=== PATIENT | male | born 1955 | race Caucasian/White ===

== ENCOUNTER 2019-08-21 17:18 | Emergency (ER) | payer BC ==
[~2019-08-21] VITALS: Ht 182.9 cm; Wt 81.7 kg
--- OUTSIDE RECORDS SUMMARY | ~2019-08-21 | XMS | Clinical Summary ---
Demographics + + + | Address | [address] | | | [place] [address] | + + + | Home Phone | | + + + | Preferred Language | Unknown | + + + | Marital Status | | + + + | Evangelical Affiliation | Unknown | + + + | Race | Unknown | + + + | Ethnic Group | Unknown | + + + Author + + + | Author | [facility] [employer] (Historical as of | | | 07-06-19) | + + + | Organization | [facility] [employer] (Historical as of | | | 07-06-19) | + + + | Address | Unknown | + + + | Phone | Unavailable | + + + Care Team Providers + +------+ + | Care Wind Farm Electrical Systems Designer Name | Role | Phone | + +------+ + | Toan Mederos MD | PP | | + +------+ + Allergies Not on File Current Medications Not on file Active Problems Not on file Social History + +-------+ +--------+------+ | Tobacco Use | Types | Packs/Day | Years | Date | | | | | Used | | + +-------+ +--------+------+ | Never Assessed | | | | | + +-------+ +--------+------+ + + + | Sex Assigned at | Date Recorded | | | | + + + | Not on file | | + + + Plan of Treatment +--------+---------+ + + + | Date | Type | Specialty | Care Team | Description | +--------+---------+ + + + | 10/29/ | Office | | Hernan Willingham, | | | 2018 | Visit | | DO [address] | | | | | | [address] [place], | | | | | | [place] [address] | | | | | | [phone] | | | | | | | | +--------+---------+ + + + + + + + + | Health Maintenance | Due Date | Last Done | Comments | + + + + + | Vaccine: | | | | | Dtap/Tdap/Td (1 - | 6 | | | | Tdap) | | | | + + + + + | Colon Cancer | | | | | Screening | 7 | | | | (Colonoscopy) | | | | + + + + + | Vaccine: Zoster (1 | | | | | of 2) | 7 | | | + + + + + | Vaccine: Influenza | | | | | (#1) | 9 | | | + + + + + Results Not on filefrom Last 3 Months Insurance +---------+--------+ +------+-------+ + | Payer | Benefi | Subscriber | Type | Phone | Address | | | t Plan | ID | | | | | | / | | | | | | | Group | | | | | +---------+--------+ +------+-------+ + | PREMERA | UNIFOR | [id number] | | | [address] [address] | | | M | 1 | | | [place] | | | [facility] | | | | [address] | | | E | | | | | +---------+--------+ +------+-------+ + + +--------+ +--------+ + + | Guarantor Name | Accoun | Relation to | Date | Phone | Billing Address | | | t Type | Patient | of | | | | | | | | | | + +--------+ +--------+ + + | SILVER,JESUS | Person | Self | [birth year] | Home: | [address] | | | al/Fam | | 1954 | [phone] | [place] [address] | | | [place] | | | [address] | | + +--------+ +--------+ + +"
--- OUTSIDE RECORDS SUMMARY | ~2019-08-21 | XMS | Encounter Summary ---
Demographics + + + | Address | [address] | | | [place] [address] | + + + | Home Phone | | + + + | Preferred Language | Unknown | + + + | Marital Status | Single | + + + | Taoism Affiliation | Unknown | + + + | Race | Unknown | + + + | Ethnic Group | Other Race | + + + Author + + + | Author | [facility] | + + + | Organization | [facility] | + + + | Address | Unknown | + + + | Phone | Unavailable | + + + Care Team Providers + +------+ + | Care Rotary Engine Assembler Name | Role | Phone | + +------+ + PCP | Unavailable | + +------+ + Encounter Details +--------+ + + + + | Date | Type | Department | Care Team | Description | +--------+ + + + + | 04/07/ | Results | [facility] | Erasmo Church, | | | 2009 | Only | Department | MD [place] | | | | | | CLINIC DERMATOLOGY | | | | | | [address] | | | | | | [place], [place] | | | | | | [address] | | | | | | | | +--------+ + + + + Social History + +-------+ +--------+------+ | Tobacco [...] on file | | + + + + + + + | Job Start Date | Occupation | Industry | + + + + | Not on file | Not on file | Not on file | + + + + + + + + | Travel History | Travel Start | Travel End | + + + + + + | No recent travel history available. | + + documented as of this encounter Plan of Treatment Not on filedocumented as of this encounter Procedures + +--------+ + + + | Procedure Name | Priori | Date/Time | Associated Diagnosis | Comments | | | ty | | | | + +--------+ + + + | DERMATOPATHOLOGY(WET | Routin | 04/07/2010 | | Results for this | | [facility]) | e | | | procedure are in the | | | | | | results section. | + +--------+ + + + documented in this encounter Results DERMATOPATHOLOGY(WET [facility]) (04/07/2010) + + + + + + | Component | Value | Ref Range | Performed | Pathologist | | | | | At | Signature | + + + + + + | DERMATOPATH | SOURCE OF SPECIMEN:A | | [facility] | | | OLOGY(WET | FIRST TISSUE LEVEL | | DERMATOPATH | | | [place]) | [place] [address] | | OLOGY | | | | CLINICAL | | | | | | DESCRIPTION:Punch, Rt. | | | | | | upper arm; 7mo. hx | | | | | | pruritic papules; eczema | | | | | | vs DH, | | | | | | undetectedscabies. | | | | | | GROSS DESCRIPTION:The | | | | | | specimen is received in | | | | | | formalin, labeled Rt. | | | | | | upper arm, with | | | | | | thepatient's name and | | | | | | consists of a pale patrick | | | | | | punch biopsy measuring | | | | | | 0.45 x0.5cm. the | | | | | | specimen is bisected and | | | | | | entirely submitted in | | | | | | one cassette. | | | | | | MICROSCOPIC | | | | | | DESCRIPTION:There is | | | | | | neutrophilic crust | | | | | | overlying focal | | | | | | ulceration of the | | | | | | epidermis. | | | | | | DIAGNOSIS:CRUST AND | | | | | | ULCERATION. | | | | | | NOTE: The findings | | | | | | are secondary, typical | | | | | | of external trauma as | | | | | | seen inEXCORIATION. | | | | | | There is no definite | | | | | | evidence of a primary | | | | | | process in thesesections | | | | | | where a sampling | | | | | | situation may be | | | | | | present. If the | | | | | | processcontinues or | | | | | | worsens, additional | | | | | | biopsy may be | | | | | | helpful. | | | | | | RT:mm5/24/10 | | | | | | Case review by:Brett | | | | | | Berlin, | | | | | | M.D./Dermatopathology | | | | | | Carmine Ash | | | | | | Jr., | | | | | | M.D.,/Dermatopathologist | | | | | | My electronic | | | | | | signature indicates that | | | | | | I have personally | | | | | | reviewed alldiagnostic | | | | | | slides, the gross and/or | | | | | | microscopic portion of | | | | | | thisreport and | | | | | | formulated the final | | | | | | diagnosis. | | | | | | Rendering | | | | | | Diagnostician: Frank | | | | | | yelitza sAh Jr., | | | | | | Cheri | | | | | | jose maria Signed 04/12/2010 | | | | + + + + + + + + | Specimen | + + | | + + + + + + + | Performing | Address | City/State/Zipcode | Phone Number | | Organization | | | | + + + + + | [facility] | [address], [address] | [place] [address] | | | DERMATOPATHOLOGY | [address] | | | + + + + + documented in this encounter Visit Diagnoses Not on filedocumented in this encounter"
--- OUTSIDE RECORDS SUMMARY | ~2019-08-21 | XMS ---
Demographics + + + | Address | [address] | | | [place] [address] | + + + | Preferred Language | Unknown | + + + | Marital Status | Unknown | + + + | Oriental Orthodox Affiliation | Unknown | + + + | Race | Unknown | + + + | Ethnic Group | Unknown | + + + Author + + + | Author | [facility] | + + + | Organization | [facility] | + + + | Address | [address] | | | [place] [address] | + + + | Phone | | + + + Care Team Providers + + + + | Care Shoe Laster Name | Role | Phone | + + + + Unavailable | Unavailable | + + + + PROBLEMS Unknown Problems ALLERGIES Unknown Allergies SOCIAL HISTORY No smoking Hx information available PLAN OF CARE VITAL SIGNS MEDICATIONS Unknown Medications RESULTS No Results PROCEDURES No Known procedures IMMUNIZATIONS No Known Immunizations"
--- OUTSIDE RECORDS SUMMARY | ~2019-08-21 | XMS | Clinical Summary ---
Demographics + + + | Address | [address] | | | [place] [address] | + + + | Home Phone | | + + + | Preferred Language | Unknown | + + + | Marital Status | Single | + + + | Pentecostalism Affiliation | Unknown | + + + | Race | Unknown | + + + | Ethnic Group | Other Race | + + + Author + + + | Author | [facility] | + + + | Organization | [facility] | + + + | Address | Unknown | + + + | Phone | Unavailable | + + + Care Team Providers + +------+ + | Care Project Management Analyst Name | Role | Phone | + +------+ + PCP | Unavailable | + +------+ + Source Comments SREEDHAR is fully live on both [facility] and [facility]Patient.[facility] Allergies Not on File Medications Not on file Active Problems Not [...] recent travel history available. | + + Last Filed Vital Signs Not on file Plan of Treatment + + + + + | Health Maintenance | Due Date | Last Done | Comments | + + + + + | Influenza (Flu) | | | | | vaccination (#1) | 9 | | | + + + + + | Pneumococcal | Aged Out | | No longer eligible | | vaccination | | | based on patient's | | | | | age to complete this | | | | | topic | + + + + + Results Not on filefrom Last 3 Months Insurance + +--------+ +--------+ + +------+ | Payer | Benefi | Subscriber | Effect | Phone | Address | Type | | | t Plan | ID | margaret | | | | | | / | | Dates | | | | | | Group | | | | | | + +--------+ +--------+ + +------+ | BLUE CROSS BLUE | REGENC | [phone] | 02/22/20 | [phone] | [address] | PPO | | SHIELD | E BCBS | x | 18-Pre | 8 | [id number] | | | | | | sent | | [place], | | | | | | | | [place] | | | | | | | | [address] | | + +--------+ +--------+ + +------+ + +--------+ +--------+ + + | Guarantor Name | Accoun | Relation to | Date | Phone | Billing Address | | | t Type | Patient | of | | | | | | | | | | + +--------+ +--------+ + + | Jesus Linder | Person | Self | [birth year] | [address] | | | al/Fam | | 1954 | [phone] | [place] [address] | | | [place] | | | 2 (Home) | | + +--------+ +--------+ + +"
--- OUTSIDE RECORDS SUMMARY | ~2019-08-21 | XMS | Clinical Summary ---
Demographics + + + | Address | [address] | | | [place] [address] | + + + | Home Phone | | + + + | Preferred Language | Unknown | + + + | Marital Status | | + + + | Amish Affiliation | Unknown | + + + | Race | Unknown | + + + | Ethnic Group | Unknown | + + + Author + + + | Author | [facility] (Historical as of | | | 07-06-19) | + + + | Organization | [facility] (Historical as of | | | 07-06-19) | + + + | Address | Unknown | + + + | Phone | Unavailable | + + + Care Team Providers + +------+ + | Care Normalizer Name | Role | Phone | + [...] | | | | | [address] [place], | | | | | | [place] [address] | | | | | | [phone] | | | | | | | [...] +------+-------+ + | PREMERA | UNIFOR | [id number] | | | [address] [address] | | | M | [address] | | | [place] | | | [facility] | | | | [address] | | | E | | | [...] | 1954 | [phone] | [place] [address] | | | [place] | | | [address] | | + +--------+ +--------+ + +"
--- OUTSIDE RECORDS SUMMARY | ~2019-08-21 | XMS | Clinical Summary ---
Demographics + + + | Address | [address] | | | [place] [address] | + + + | Home Phone | | + + + | Preferred Language | Unknown | + + + | Marital Status | | + + + | Islam Affiliation | Unknown | + + + | Race | Unknown | + + + | Ethnic Group | Unknown | + + + Author + + + | Author | [facility] | | | and [place] | + + + | Organization | [facility] | | | and [place] | + + + | Address | Unknown | + + + | Phone | Unavailable | + + + Care Team Providers + +------+ + | Care Head Field Hockey Coach Name | Role | Phone | + +------+ + | Toan Mederos MD | PCP | | + +------+ + Allergies Not on File Medications Not on [...] Signs Not on file Plan of Treatment +--------+---------+ + + + | Date | Type | Specialty | Care Team | Description | +--------+---------+ + + + | 09/17/ | Office | Urology | Hernan Willingham, | | | 2018 | Visit | | DO [address] | | | | | | [place] [address] | | | | | | [phone] | | | | | | | | +--------+---------+ + + + + + + + + | Health Maintenance | Due Date | Last Done | Comments | + + + + + | Hepatitis C | | | | | Screening | 7 | | | + + + + + | Vaccine: | | | | | Dtap/Tdap/Td (1 - | 6 | | | | Tdap) | | | | + + + + + | Colorectal Cancer | | | | | Screening [...] Results Not on filefrom Last 3 Months Advance Directives Patient has advance care planning documents on file. For more information, please contact:[facility] [place] [address]"
--- OUTSIDE RECORDS SUMMARY | ~2019-08-21 | XMS | Encounter Summary ---
Demographics + + + | Address | [address] | | | [place] [address] | + + + | Home Phone | | + + + | Preferred Language | Unknown | + + + | Marital Status | Single | + + + | Shinto Affiliation | Unknown | + + + | Race | Unknown | + + + | Ethnic Group | Other Race | + + + Author + + + | Author | [facility] | + + + | Organization | [facility] | + + + | Address | Unknown | + + + | Phone | Unavailable | + + + Care Team Providers + +------+ + | Care Patient Care Nursing Assistant Name | Role | Phone | + [...] | | | | | [place], [place] | | | | | | [address] | | | | | | | [...] DERMATOPATH | | | MNT) | [place] [address] | | OLOGY | | | | [...] | | | | | | yelitza Ash Jr., | | | | | | [...] [facility] | [address], [address] | [place] [address] | | | DERMATOPATHOLOGY | [address] | | | + + + + + documented in this encounter Visit Diagnoses Not on filedocumented in this encounter"
--- OUTSIDE RECORDS SUMMARY | ~2019-08-21 | XMS | Clinical Summary ---
Demographics + + + | Address | [address] | | | [place] [address] | + + + | Home Phone | | + + + | Preferred Language | Unknown | + + + | Marital Status | | + + + | Congregational Affiliation | Unknown | + + + | Race | Unknown | + + + | Ethnic Group | Unknown | + + + Author + + + | Author | [facility] | | | and [place] | + + + | Organization | [facility] | | | and [place] | + + + | Address | Unknown | + + + | Phone | Unavailable | + + + Care Team Providers + +------+ + | Care Growth Media Mixer Mushroom Name | Role | Phone | + [...] [address] | | | | | | [place] [address] | | | | | | [phone] | | | | | | | [...] documents on file. For more information, please contact:[facility] [address]"
--- OUTSIDE RECORDS SUMMARY | ~2019-08-21 | XMS | Clinical Summary ---
Demographics + + + | Address | [address] | | | [place] [address] | + + + | Home Phone | | + + + | Preferred Language | Unknown | + + + | Marital Status | Single | + + + | Yazidi Affiliation | Unknown | + + + | Race | Unknown | + + + | Ethnic Group | Other Race | + + + Author + + + | Author | [facility] | + + + | Organization | [facility] | + + + | Address | Unknown | + + + | Phone | Unavailable | + + + Care Team Providers + +------+ + | Care Open Tenter Operator Name | Role | Phone | + +------+ + PCP | Unavailable | + +------+ + Source Comments SREEDHRA is fully live on both [facility] and [facility] InPatient.[facility] Allergies Not on File Medications Not on [...] | x | 18-Pre | 8 | [address] | | | | | | sent | | [place], | | | | | | | | [place] | | | | | | | | [address] | | + +--------+ +--------+ + +------+ [...] | | al/Fam | | 1954 | [phone] | [place] [address] | | | [place] | | | 2 (Home) | | + +--------+ +--------+ + +"
--- OUTSIDE RECORDS SUMMARY | ~2019-08-21 | XMS ---
Demographics + + + | Address | [address] | | | [place] [address] | + + + | Preferred Language | Unknown | + + + | Marital Status | Unknown | + + + | Mormon Affiliation | Unknown | + + + | Race | Unknown | + + + | Ethnic Group | Unknown | + + + Author + + + | Author | [facility] | + + + | Organization | [facility] | + + + | Address | [address] | | | [place] [address] | + + + | Phone | | + + + Care Team Providers + + + + | Care Vice President Corporate Communications Name | Role | Phone | + + + + Unavailable | Unavailable | + + + + PROBLEMS + + + + + + + + | Type | Condition | ICD9-CM | DHS57-PR | Onset | Condition | SNOMED | | | | Code | Code | Dates | Status | Code | + + + + + + + + | Assessment | Prostatiti | N41.9 | | Feb, | Active | [id number] | | | s | | | 2017 | | | + + + + + + + + | Assessment | UTI | N39.0 | | Feb, | Active | [id number] | | | (urinary | | | 2016 | | | | | tract | | | | | | | | infection) | | | | | | + + + + + + + + ALLERGIES + + + + +---------+ | Substance | Reaction | Event Type | Date | Status | + + + + +---------+ | N.K.JoanA. | Unknown | Non Drug | Feb, | Unknown | | | | Allergy | | | + + + + +---------+ SOCIAL HISTORY No smoking Hx information available PLAN OF CARE + +---------+ | Activity | Details | + +---------+ +---+ | | +---+ + + + | Pending Test | Urine Culture, Routine | + + + | Pending Test | Urinalysis, Dip (IH) | + + + | | prn,Reason: | + + + VITAL SIGNS + + + + | Height | 72 in | 2017-02-26 | + + + + | Weight | 184.8 lbs | 2017-02-26 | + + + + | BMI | 25.06 kg/m2 | 2017-02-26 | + + + + | Temperature | 97.8 degrees Fahrenheit | 2017-02-26 | + + + + | Heart Rate | 62 /min | 2017-02-26 | + + + + | Blood pressure systolic | 123 mm Hg | 2017-02-26 | + + + + | Blood pressure diastolic | 82 mm Hg | 2017-02-26 | + + + + MEDICATIONS + + +---------+ + + + +--------+ | Medicati | Instruct | Dosage | Frequenc | Start | End Date | Duration | Status | | on | ions | | y | Date | | | | + + +---------+ + + + +--------+ | Doxycycl | Oral bid | 1 | 12h | Feb, | 28 March, | 30 days | Active | | ine | | capsule | | 2016 | 2016 | | | | Hyclate | | | | | | | | | 100 MG | | | | | | | | + + +---------+ + + + +--------+ RESULTS No Results PROCEDURES + + + + + | Procedure | Date Ordered | Related Diagnosis | Body Site | + + + + + | LAB URINALYSIS (DIP | February 26, 2017 | | | | STICK ONLY | | | | + + + + + | Est Level III | February 26, 2017 | | | | Intermediate | | | | + + + + + IMMUNIZATIONS No Known Immunizations"
[~2019-08-21 17:18] MED LIST: NEXIUM20 MG PO
[2019-08-21] MEDS ORDERED: DOXYCYCLINE HY100 MG PO (17:27)
--- NOTE | 2019-08-21 18:33 | EKG ---
[facility] [address] [facility] [place], [place] [address] Signed Normal sinus rhythm Normal ECG No previous ECGs available Confirmed by FRANCISCO RICHTER MD ([id number]) on 08/21/2019 6:33:19 PM Electronically Signed By: FRANCISCO RICHTER MD 08/21/19 1833 PATIENT NAME: CLAUDIA SHEPPARD Electrocardiogram DATE OF : 59 PHYSICIAN: FRANCISCO RICHTER MD REPORT #: [id number] REPORT IS CONFIDENTIAL AND NOT TO BE RELEASED WITHOUT AUTHORIZATION
== END 2019-08-21 18:50 | disposition home or self-care (01) ==
LOC: ED 17:18
DX: M94.0 Chondrocostal junction syndrome [Tietze] (principal)
CPT/HCPCS: 71045; 80053; 83735; 84484; 85025; 93005; 93010; 99285-25

== ENCOUNTER 2022-03-17 07:40 | Day surgery (SDC) | payer BC ==
[~2022-03-17] VITALS: Ht 182.9 cm; Wt 81.8 kg
--- NOTE | ~2022-03-17 | OR ---
[facility] [address] [place], [place] [address] Draft DATE OF OPERATION: 03/17/2022 SURGEON: Angela Meza MD PREOPERATIVE DIAGNOSIS: Presumed family history of colon cancer and maternal grandfather. POSTOPERATIVE DIAGNOSES: 1. Extensive sigmoid and left-sided diverticulosis. 2. Sessile polyp at 60 cm (excised). PROCEDURE: Total colonoscopy to cecum with cold snare polypectomy x1. ANESTHESIA: Intravenous sedation fentanyl 200 mcg and Versed 6 mg. INDICATION: This 66-year-old white man is a patient of Dr. Mederos. He is said to have undergone colonoscopy in 2013 but I have no records of that in my office chart. He has family history of colon cancer in a maternal grandfather was said to have of the disease. He is currently asymptomatic. He understands the risks of bleeding, infection, and perforation related to colonoscopy and wished to proceed. FINDINGS: The prep was excellent. Complete colonoscopy was undertaken to cecum. Passage to the sigmoid and left colon was somewhat challenging on the basis of extensive diverticular change, but he had no stricture. Ultimately, the colon was fully examined including the cecum. There was one sessile polyp at 60 cm which was excised with cold snare polypectomy technique. The remaining colon was normal except for internal hemorrhoids. PROCEDURE IN DETAIL: The patient was brought to the endoscopy suite and placed in lateral decubitus position given intravenous sedation to the point of slurred speech and nystagmus. Full cardiopulmonary monitoring was maintained. Digital rectal examination was normal. An Olympus video colonoscope was passed in the rectum and manipulated into the sigmoid. Angulation deformity related to extensive diverticulosis was noted. Additional sedation was given as needed. Ultimately, the scope was passed beyond this area and passed to the cecum. Full intubation of the cecum was noted. The ileocecal valve and appendiceal orifice were normal. Irrigation was undertaken. The scope was then carefully PATIENT NAME: CLAUDIA SHEPPARD OPERATIVE REPORT DATE OF : 59 REPORT #: [id number] PHYSICIAN: ANGELA MEZA MD PCP: ADELINA MEDEROS MD REPORT IS CONFIDENTIAL AND NOT TO BE RELEASED WITHOUT AUTHORIZATION [facility] [address] [place], [place] [address] Draft withdrawn. Examination throughout showed no sign of abnormality until approximately 60 cm from the anal verge, where a sessile polyp was noted. This was excised with cold snare polypectomy technique. It was excised fully. Further withdrawal showed extensive diverticular changes of the colon once again, retroflexed view of the rectum showed internal hemorrhoidal changes but nothing acute, certainly no bleeding or other abnormality. The scope was removed. The patient was taken to the recovery room in good condition. CONCLUDING DIAGNOSES: 1. Extensive diverticular disease of sigmoid and left colon. 2. Single polyp at 60 cm, excised, and internal hemorrhoids. PLAN: Recommend repeat colonoscopy in 5 years, sooner if symptoms should develop. Recommend high-fiber diet. He will return to the ongoing care of Dr. Mederos. MD [place]/MELIZA /[id number] cc: Adelina Mederos MD Copies: ADELINA MEDEROS MD ~ PATIENT NAME: CLAUDIA SHEPPARD OPERATIVE REPORT DATE OF : 59 REPORT #: [id number] PHYSICIAN: ANGELA MEZA MD PCP: ADELINA MEDEROS MD REPORT IS CONFIDENTIAL AND NOT TO BE RELEASED WITHOUT AUTHORIZATION
[~2022-03-17 07:40] MED LIST changes: +DOXYCYCLINE HY100 MG PO
--- NOTE | 2022-03-17 09:43 | NUR ---
03/17/22 0943 Noris Cowart 0916 PATIENT ARRIVES TO PACU AWAKE BUT DROWSY. ANSWERS QUESTIONS APPORPRIATELY. RESP EVEN AND UNLABORED, ROOM AIR SATS >94%. DENIES PAIN OR NAUSEA.
--- NOTE | 2022-03-18 12:41 | PATH ---
[facility] [address], [place] [address] Signed SPECIMEN(S): A COLON POLYP AT 60 CM SPECIMEN SOURCE: A. COLON POLYP AT 60 CM CLINICAL HISTORY: History diverticulitis, family history colon ca. post-op: Diverticulosis, polyp x 1, internal hemorrhoids. Colonoscopy. FINAL PATHOLOGIC DIAGNOSIS: Colon, 60 cm, polypectomy: - Tubular adenoma. BRP:cml:C2NR MICROSCOPIC EXAMINATION: Histologic sections of all submitted blocks are examined by light microscopy. These findings, together with the gross examination, support the pathologic diagnosis. GROSS DESCRIPTION: The specimen, labeled "MS, 1," and designated on the requisition "60 cm colon polypectomy," is received in formalin and consists of two fragments of pink-patrick tissue (0.1-0.2 cm in greatest dimension). The specimen is submitted entirely in cassette (A1). AC (under the direct supervision of a pathologist) The Gross Description was prepared using a voice recognition system. The report was reviewed for accuracy; however, sound-alike word errors, addition and/or deletions may occur. If there is any question about this report, please contact Client Services. PERFORMING LABORATORY: The technical component was performed by [facility], [address] [place] [id number] (CLIA# [id number]). [facility] [address] [address] (CLIA# [id number]). Diagnostician: Judah Barton MD Pathologist Electronically Signed 03/18/2022 PATIENT NAME: CLAUDIA SHEPPARD PATHOLOGY DATE OF : 59 REPORT #: [id number] PHYSICIAN: [facility] PCP: ADELINA MONTEJO MD REPORT IS CONFIDENTIAL AND NOT TO BE RELEASED WITHOUT AUTHORIZATION [address] [place], [place] [address] Signed Copies: ~ PATIENT NAME: CLAUDIA SHEPPARD PATHOLOGY DATE OF : 59 REPORT #: [id number] PHYSICIAN: [facility] PCP: ADELINA MONTEJO MD REPORT IS CONFIDENTIAL AND NOT TO BE RELEASED WITHOUT AUTHORIZATION
== END 2022-03-17 10:15 | disposition home or self-care (01) ==
LOC: OPS 07:40 → DS 07:40 → OPS 08:30 → DS 13:00 → OPS 13:00
PROVIDERS: ATTEND Surgery
PROC: 0DBE8ZX Excision of Large Intestine, Via Natural or Artificial Opening Endoscopic, Diagnostic (ICD-10-PCS; principal; 2022-03-17 08:30)
DX: Z12.11 Encounter for screening for malignant neoplasm of colon (principal); K57.30 Diverticulosis of large intestine without perforation or abscess without bleeding; K64.8 Other hemorrhoids; Z80.0 Family history of malignant neoplasm of digestive organs; Z87.19 Personal history of other diseases of the digestive system; D12.6 Benign neoplasm of colon, unspecified
CPT/HCPCS: 99153; G0500; J2250; J3010; J7121